=== PATIENT | male | born 1965 | race Caucasian/White ===

== ENCOUNTER → 2020-02-04 | Day surgery (SDC) | payer BC, OTHER ==
[~2020-02-04] MED LIST: LIDOCAINE 0.5% INJ-PF (5 MG/ML) 50 ML SDV ONE; PROPOFOL INJ 200 MG/20 ML VIAL IV ONE
--- NOTE | 2020-02-04 08:33 | Operative Report ---
Operative Report DATE OF SURGERY: 02/04/20 Operative Report: The risk, benefits and alternatives of the procedure including the risks of bleeding, perforation requiring surgery have been explained to the patient in detail and informed consent has been obtained. Patient was placed in left, lateral decubital position. Timeout was called. Propofol medications administered. Rectal examination is done which did not reveal any masses, tears or fissures. An Olympus upper scope was introduced into the patient's rectum. Scope was then Advanced all the way to the cecum. Cecum was identified by the usual anatomical landmarks including the ileocecal valve as well as the appendiceal office. Photodocumentation is obtained. Scope was then sequentially pulled back via the various segments of the colon including the ascending colon, hepatic lecture, transverse colon, splenic flexure, descending colon and finally into the rectosigmoid portions of the colon. Retroflexion maneuver is performed. The risks benefits and alternatives of the procedure explained to the patient in detail and informed consent is obtained.A GIF Olympus video scope was inserted into the patient's mouth and hypopharynx, the esophagus is identified intubated and insufflated, the scope was then advanced through the esophagus stomach and duodenum ,retroflexion maneuver is done ,the esophagus stomach and first and second portions of the duodenum examined PREOPERATIVE DIAGNOSIS: Colorectal cancer screening. Gastroesophageal reflux disease POSTOPERATIVE DIAGNOSIS: Hiatal hernia. 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 Gastritis status post biopsy. Left colon inflammation status post biopsy. Internal hemorrhoids OPERATION: Colonoscopy with biopsy. EGD with biopsy SURGEON: CHRIS TELLEZ ANESTHESIA: LMAC TISSUE REMOVED OR ALTERED: As noted above. COMPLICATIONS: None. ESTIMATED BLOOD LOSS: None. INTRAOPERATIVE FINDINGS: As noted above. PROCEDURE: Patient tolerated the procedure well. No immediate postprocedure complications are noted. Patient is discharged in good condition. Discharge date 02/04/2020. Discharge diet: Regular. Discharge activity: Regular. 2 to 3-week follow-up to discuss findings. Patient is instructed to call the office or proceed to the emergency room should there be any further proximal questions. Wait on the pathology. If negative pathology of the colon specimen consider 10-year surveillance colonoscopy.
[2020-02-04 08:53] VITALS: BP 116/74
== END ==
LOC: END 06:58
PROVIDERS: ATTEND Internal Medicine Gastroenterology
DX: Z12.11 Encounter for screening for malignant neoplasm of colon (principal); Z12.12 Encounter for screening for malignant neoplasm of rectum; K52.9 Noninfective gastroenteritis and colitis, unspecified; K64.8 Other hemorrhoids; K44.9 Diaphragmatic hernia without obstruction or gangrene; K29.50 Unspecified chronic gastritis without bleeding; Z03.818 Encounter for observation for suspected exposure to other biological agents ruled out; K21.9 Gastro-esophageal reflux disease without esophagitis; Z79.899 Other long term (current) drug therapy; Z88.2 Allergy status to sulfonamides
CPT/HCPCS: 43239; 45380; 88305 ×2; U0003; J3490; J2704; C9803; 87635